=== PATIENT | male | born 1955 | race Caucasian/White ===

== ENCOUNTER 2017-09-25 17:39 | Observation (INO) | payer BC ==
[~2017-09-25] VITALS: Ht 162.6 cm; Wt 115.0 kg
[~2017-09-25 17:39] MED LIST: TYLE325T PO
[2017-09-25 17:52] VITALS: BP 137/70; PULSE 64; RESP 16; TEMP 97.3; O2SAT 95
[2017-09-25] MEDS ORDERED: TETANUS/DIPHTHERIA TOXOID ADULT 0.5 ML VIAL IM ONE (18:30)
[2017-09-25 18:31] VITALS: BP 103/65; PULSE 65; RESP 18; O2SAT 96
[2017-09-25 19:08] LABS: AUTOMATED NEUTROPHIL # 10.3 TH/MM3 (1.8-7.7); BASOPHIL % 0.3 % (0.0-2.0); EOSINOPHIL # 0.2 TH/MM3 (0-0.4); EOSINOPHIL % 1.3 % (0.0-4.0); HEMATOCRIT 41.5 % (39.0-51.0); HEMOGLOBIN 14.3 GM/DL (13.0-17.0); LYMPH % 15.2 % (9.0-44.0); MEAN CELL VOLUME 90.9 FL (80.0-100.0); MEAN CORPUSCULAR HEMOGLOBIN 31.4 PG (27.0-34.0); MEAN CORPUSCULAR HGB CONC 34.5 % (32.0-36.0); MEAN PLATELET VOLUME 6.8 FL (7.0-11.0); MONO % 6.4 % (0.0-8.0); MONOCYTE # 0.9 TH/MM3 (0-0.9); NEUT % 76.8 % (16.0-70.0); PLATELET COUNT 244 TH/MM3 (150-450); RED BLOOD COUNT 4.56 MIL/MM3 (4.50-5.90); RED CELL DISTRIBUTION WIDTH 12.7 % (11.6-17.2); WHITE BLOOD COUNT 13.5 TH/MM3 (4.0-11.0)
--- NOTE | 2017-09-25 19:12 | RADRPT ---
EXAM DATE: 09/25/2017 6:55 PM EDT AGE/SEX: 62 years / Male INDICATIONS: Fell today. Chest pain. CLINICAL DATA: This is the patient's initial encounter. Patient reports that signs and symptoms have been present for 1 day and indicates a pain score of 1/10. MEDICAL/SURGICAL HISTORY: None. None. COMPARISON: No prior exams available for comparison. FINDINGS: A single AP view of the chest demonstrates the lungs to be symmetrically aerated without evidence of mass, infiltrate or effusion. The cardiomediastinal contours are unremarkable. Osseous structures a re intact. CONCLUSION: No acute findings. Electronically signed by: Adryan Mcgregor MD 09/25/2017 7:11 PM EDT
[2017-09-25 19:30] LABS: BICARBONATE 27.3 MEQ/L (21.0-32.0); BLOOD UREA NITROGEN 17 MG/DL (7-18); CALCIUM 8.2 MG/DL (8.5-10.1); CHLORIDE 106 MEQ/L (98-107); CREATININE 1.04 MG/DL (0.60-1.30); GLOMERULAR FILTRATION RATE 73 ML/MIN (>89); GLUCOSE,RANDOM 121 MG/DL (74-106); MAGNESIUM 2.3 MG/DL (1.5-2.5); SODIUM (NA) 141 MEQ/L (136-145)
[2017-09-25 19:41] LABS: TROPONIN I LESS THAN 0.02 NG/ML (0.02-0.05)
--- NOTE | 2017-09-25 19:46 | RADRPT ---
EXAM DATE: 09/25/2017 7:33 PM EDT AGE/SEX: 62 years / Male INDICATIONS: Trauma; fall. CLINICAL DATA: This is the patient's initial encounter. Patient reports that signs and symptoms have been present for 1 day and indicates a pain score of 3/10. MEDICAL/SURGICAL HISTORY: None. Gastric bypass. RADIATION DOSE: 41.36 CTDI (mGy) COMPARISON: No prior exams available for comparison. TECHNIQUE: CT of the head without contrast. Using automated exposure control and adjustment of the mA and/or kV according to patient size, radiation dose was kept as low as reasonably achievable to ob tain optimal diagnostic quality images. FINDINGS: Cerebrum: The ventricles are normal for age. No evidence of midline shift, mass lesion, hemorrhage or acute infarction. No extraaxial fluid collections are seen. Posterior Fossa: The cerebellum and brainstem are intact. The 4th ventricle is midline. The cerebe llopontine angle is unremarkable. Extracranial: The visualized portion of the orbits is intact. Skull: The calvaria is intact. No evidence of skull fracture. CONCLUSION: 1. No acute intracranial abnormality. Electronically signed by: Adryan Mcgregor MD 09/25/2017 7:44 PM EDT
--- NOTE | 2017-09-25 19:47 | RADRPT ---
EXAM DATE: 09/25/2017 7:41 PM EDT AGE/SEX: 62 years / Male INDICATIONS: Trauma; fall. CLINICAL DATA: This is the patient's initial encounter. Patient reports that signs and symptoms have been present for 1 day and indicates a pain score of 4/10. MEDICAL/SURGICAL HISTORY: None. Gastric bypass. RADIATION DOSE: 64.21 CTDI (mGy) COMPARISON: No prior exams available for comparison. TECHNIQUE: Contiguous images in the axial and coronal planes were obtained using helical multirow de tector technique. Using automated exposure control and adjustment of the mA and/or kV according to p atient size, radiation dose was kept as low as reasonably achievable to obtain optimal diagnostic daja lity images. FINDINGS: Mildly displaced bilateral nasal bone fractures. No other facial bone fracture identified. Paranasal sinuses are clear. CONCLUSION: 1. Bilateral nasal bone fractures. Electronically signed by: Adryan Mcgregor MD 09/25/2017 7:46 PM EDT
[2017-09-25 19:48] VITALS: BP 141/86; PULSE 66; RESP 14; O2SAT 96
--- NOTE | 2017-09-25 19:49 | RADRPT ---
EXAM DATE: 09/25/2017 7:38 PM EDT AGE/SEX: 62 years / Male INDICATIONS: Trauma; fall. CLINICAL DATA: This is the patient's initial encounter. Patient reports that signs and symptoms have been present for 1 day and indicates a pain score of 4/10. MEDICAL/SURGICAL HISTORY: None. Gastric bypass. RADIATION DOSE: 24.11 CTDI (mGy) COMPARISON: No prior exams available for comparison. TECHNIQUE: Contiguous axial images were obtained using helical multirow detector technique. The vol umetric data was post-processed with multiplanar reconstruction in oblique axial, sagittal, and coron al planes. Using automated exposure control and adjustment of the mA and/or kV according to patient s ize, radiation dose was kept as low as reasonably achievable to obtain optimal diagnostic quality gene ges. FINDINGS: No acute fracture or spondylolisthesis. No prevertebral soft tissue swelling. No significant bony can al or bony foraminal stenosis. CONCLUSION: 1. No acute findings on cervical spine CT. Electronically signed by: Adryan Mcgregor MD 09/25/2017 7:48 PM EDT
[2017-09-25 19:50] VITALS: BP_SYST 136; BP_SYST 138; BP_SYST 140; BP_DIAS 84; BP_DIAS 86; BP_DIAS 89; RESP 16; RESP 18; RESP 20
--- NOTE | 2017-09-25 20:21 | HHI.HP ---
[facility] Service [facility] Primary Care Physician BENTON Denney Admission Diagnosis Diagnoses: (1) Fall Diagnosis: Principal (2) Nasal bone fracture Diagnosis: Principal (3) Dehydration Diagnosis: Principal Travel History International Travel<30 Days: No Contact w/Intl Traveler <30 Da: No Traveled to Known Affected Are: No History of Present Illness This is a 62-year-old male with a PMH of Gastric Bypass who was brought to the ER after fall w/ apparent syncopal event. Pt has no recollection of events and unable to provide much history. states pt was in bed taking a nap when she heard a "thud", at first she thought it was their dogs making noise, however 15-20min later she heard yelling for her. Unclear if pt had syncopal, no previous h/o syncope. Denies chest pain or SOB. Does report persistent non-productive cough which "make me see stars sometimes", but no fever or chills. On arrival, BP 137/70, HR 64, O2 sat 95% on RA, Afebrile. WBC 13.5. GFR 73. Troponin negative. CT Head with no acute findings. CT C- spine negative. CT Maxillofacial w/ bilateral nasal bone fractures. Review of Systems Except as stated in HPI: all other systems reviewed are Neg ROS: 14 point review of systems otherwise negative. Past Family Social History Past Medical History PMH: Gastric Bypass Past Surgical History PAST SURGICAL HISTORY: Gastric Bypass, Bilateral Rotator Cuff Repair Allergies: Coded Allergies: No Known Allergies (Verified Allergy, Unknown, 09/25/17) Family History PAST FAMILY HISTORY: Reviewed. No h/o DM or CAD Social History PAST SOCIAL HISTORY: Negative for alcohol, tobacco or drugs. Physical Exam Vital Signs Vital Signs Date Time Temp Pulse Resp B/P (MAP) Pulse Ox O2 Delivery O2 Flow Rate FiO2 09/25/17 19:50 70 16 136/84 (101) 74 18 140/86 (104) 73 20 138/89 (105) 09/25/17 19:48 66 14 141/86 (104) 96 Room Air 09/25/17 18:31 65 18 103/65 (78) 96 Room Air 09/25/17 18:26 65 20 Room Air 09/25/17 17:52 97.3 64 16 137/70 (92) 95 Physical Exam PE: GENERAL: Very pleasant middle-aged white male in no acute distress. at bedside. HEENT: PERRLA, EOMI. No scleral icterus or conjunctival pallor. No lid lag or facial droop. +ecchymosis nasal bridge, some swelling. CARDIOVASCULAR: Regular rate and rhythm. No obvious murmurs to auscultation. No chest tenderness to palpation. RESPIRATORY: No obvious rhonchi or wheezing. Clear to auscultation. Breath sounds equal bilaterally. GASTROINTESTINAL: Abdomen soft, non-tender, nondistended. BS normal. MUSCULOSKELETAL: Extremities without clubbing, cyanosis, or edema. No obvious deformities. NEUROLOGICAL: Awake, alert and oriented x4. No focal neurologic deficits. Moving both upper and lower extremities spontaneously. Laboratory Laboratory Tests Test 09/25/17 18:50 White Blood Count 13.5 Red Blood Count 4.56 Hemoglobin 14.3 Hematocrit 41.5 Mean Corpuscular Volume 90.9 Mean Corpuscular Hemoglobin 31.4 Mean Corpuscular Hemoglobin Concent 34.5 Red Cell Distribution Width 12.7 Platelet Count 244 Mean Platelet Volume 6.8 Neutrophils (%) (Auto) 76.8 Lymphocytes (%) (Auto) 15.2 Monocytes (%) (Auto) 6.4 Eosinophils (%) (Auto) 1.3 Basophils (%) (Auto) 0.3 Neutrophils # (Auto) 10.3 Lymphocytes # (Auto) 2.0 Monocytes # (Auto) 0.9 Eosinophils # (Auto) 0.2 Basophils # (Auto) 0.0 CBC Comment DIFF FINAL Differential Comment Blood Urea Nitrogen 17 Creatinine 1.04 Random Glucose 121 Calcium Level 8.2 Magnesium Level 2.3 Sodium Level 141 Potassium Level 3.9 Chloride Level 106 Carbon Dioxide Level 27.3 Anion Gap 8 Estimat Glomerular Filtration Rate 73 Total Creatine Kinase 105 Creatine Kinase MB 1.0 Troponin I LESS THAN 0.02 Thyroid Stimulating Hormone 3rd Gen 1.330 Result Diagram: 09/25/17184909/25/17 185 Caprini VTE Risk Assessment Caprini VTE Risk Assessment: No/Low Risk (score <= 1) Caprini Risk Assessment Model Point Value = 1 Point Value = 2 Point Value = 3 Point Value = 5 Age 41-60 Minor surgery BMI > 25 kg/m2 Swollen legs Varicose veins or History of unexplained or recurrent spontaneous Oral contraceptives or hormone replacement Sepsis (< 1 month) Serious lung disease, including pneumonia (< 1 month) Abnormal pulmonary function Acute myocardial infarction Congestive heart failure (< 1 month) History of inflammatory bowel disease Medical patient at bed rest Age 61-74 Arthroscopic surgery Major open surgery (> 45 min) Laparoscopic surgery (> 45 min) Malignancy Confined to bed (> 72 hours) Immobilizing plaster cast Central venous access Age >= 75 History of VTE Family history of VTE Factor V Leiden Prothrombin [id number] Lupus anticoagulant Anticardiolipin antibodies Elevated serum homocysteine Heparin-induced thrombocytopenia Other congenital or acquired thrombophilia Stroke (< 1 month) Elective arthroplasty Hip, pelvis, or leg fracture Acute spinal cord injury (< 1 month) Prophylaxis Regimen Total Risk Factor Score Risk Level Prophylaxis Regimen 0-1 Low Early ambulation 2 Moderate Order ONE of the following: *Sequential Compression Device (SCD) *Heparin 5000 units SQ BID 3-4 Higher Order ONE of the following medications: *Heparin 5000 units SQ TID *Enoxaparin/Lovenox 40 mg SQ daily (WT < 150 kg, CrCl > 30 mL/min) *Enoxaparin/Lovenox 30 mg SQ daily (WT < 150 kg, CrCl > 10-29 mL/min) *Enoxaparin/Lovenox 30 mg SQ BID (WT < 150 kg, CrCl > 30 mL/min) AND/OR *Sequential Compression Device (SCD) 5 or more Highest Order ONE of the following medications: *Heparin 5000 units SQ TID (Preferred with Epidurals) *Enoxaparin/Lovenox 40 mg SQ daily (WT < 150 kg, CrCl > 30 mL/min) *Enoxaparin/Lovenox 30 mg SQ daily (WT < 150 kg, CrCl > 10-29 mL/min) *Enoxaparin/Lovenox 30 mg SQ BID (WT < 150 kg, CrCl > 30 mL/min) AND *Sequential Compression Device (SCD) Assessment and Plan Problem List: (1) Fall ICD Code: W19.XXXA - Unspecified fall, initial encounter (2) Dehydration ICD Code: E86.0 - Dehydration (3) Nasal bone fracture ICD Code: S02.2XXA - Fracture of nasal bones, initial encounter for closed fracture Assessment and Plan A/P: 1. Fall: suspected syncopal event w/ fall out of bed, pt w/ no recollection of events. CT Head w/ no acute findings, CT C-spine negative, images reviewed by me. Admit for Observation in light of likely syncopal event. Telemetry. Initial trop negative, will check serial enzymes to eval for possible ischemia. Check echo to eval for valvular abnormalities/outlet obstruction. IVF for hydration. 2. Nasal Bone Fx: Bilateral. Non-op, outpatient follow up as needed. Analgesics/antiemetics 3. Dehydration: GFR 73, IVF for hydration, check U/a to eval for underlying UTI. Repeat labs in am. 4. DVT Prophylaxis: SCD/Teds 5. Social work for d/c planning as needed 6. Case discussed w/ ER physician at length, labs/records/imaging reviewed by me. Loraine Morales MD Sep 25, 2017 20:20
[2017-09-25] MEDS ORDERED: SODIUM CHLORIDE 0.9% FLUSH 10 ML FLUSH IV FLUSH PRN (20:30)
[2017-09-25] MEDS ORDERED: LACTULOSE SYRUP 20 GM/30 ML CUP PO PRN (20:30)
[2017-09-25] MEDS ORDERED: METOCLOPRAMIDE HCL 10 MG/2 ML VIAL IV PUSH PRN (20:30)
[2017-09-25] MEDS ORDERED: SENNOSIDES 8.6 MG TAB PO PRN (20:30)
[2017-09-25] MEDS ORDERED: MAGNESIUM HYDROXIDE SUSP 30 ML CUP PO PRN (20:30)
[2017-09-25] MEDS ORDERED: BISACODYL 10 MG SUPP RECTAL PRN (20:30)
[2017-09-25] MEDS ORDERED: MORPHINE SULFATE 2 MG/ML SYRINGE IV PUSH PRN (20:30)
[2017-09-25] MEDS ORDERED: ACETAMINOPHEN 325 MG TAB PO PRN (20:30)
[2017-09-25] MEDS: DOCUSATE SODIUM 50 MG/SENNA 8.6 MG TAB PO SCH (21:00)
[2017-09-25] MEDS: SODIUM CHLORIDE 0.9% FLUSH 10 ML FLUSH IV FLUSH SCH (21:00)
[2017-09-25] MEDS: SODIUM CHLOR 0.9% 1000 ML INJ 1,000 ML IV SCH (21:16)
--- NOTE | 2017-09-25 21:19 | PD ---
HPI Chief Complaint: Fall Time Seen by Provider: 18:21 Travel History International Travel<30 days: No Contact w/Intl Traveler<30days: No Traveled to known affect area: No History of Present Illness HPI 62-year-old male that presents to the ED for evaluation of possible fall versus syncope. Patient apparently was taking a nap today and he woke up on the floor. Per who is at bedside patient apparently was taking a nap and all of a sudden she heard a big loud noise coming from the room where she was at. Apparently 20 minutes later patient called for his as he was on the floor and had an abrasion to his nose. He could not remember how he got it. Per patient he has been battling some cough and congestion for the past couple of days and is not getting better. Per patient his cough so bad that he almost passes out. He believes that this might have happened although he does not really remember what happened. He does not know how he got in the floor. Possibly he was on the floor for about 10 to 20 minutes per . No history of syncope. No history of cardiac disease. No history of CVA. No chest pain or shortness of breath. He states having congestion and cough. He has significant abrasions and bruising to the forehead and nose but otherwise no other discomfort. He does state having some mild neck pain as well as some pain to the nose. Has no allergies to medication. No other medical issues at this time. PFSH Past Medical History Diminished Hearing: No Tetanus Vaccination: Unknown Past Surgical History Abdominal Surgery: Yes (GASTRIC BYPASS) Social History Alcohol Use: No Tobacco Use: No Substance Use: No Allergies-Medications (Allergen,Severity, Reaction): Coded Allergies: No Known Allergies (Verified Allergy, Unknown, 09/25/17) Reported Meds & Prescriptions Reported Meds & Active Scripts Active Reported Tylenol (Acetaminophen) 325 Mg Tab 250 Mg PO BID Review of Systems Except as stated in HPI: all other systems reviewed are Neg Physical Exam Narrative GENERAL: SKIN: Warm and dry. HEAD: Atraumatic. Normocephalic. EYES: Pupils equal and round. No scleral icterus. No injection or drainage. ENT: No nasal bleeding or discharge. Mucous membranes pink and moist. Tongue is midline. No uvula deviation. Patient has abrasions as well as bruising noted on the mid forehead as well as the bridge of the nose. Tender to touch. NECK: Trachea midline. No JVD. CARDIOVASCULAR: Regular rate and rhythm. No murmurs, S3, S4. RESPIRATORY: No accessory muscle use. Clear to auscultation. Breath sounds equal bilaterally. GASTROINTESTINAL: Abdomen soft, non-tender, nondistended. Hepatic and splenic margins not palpable. MUSCULOSKELETAL: Extremities without clubbing, cyanosis, or edema. No obvious deformities. Full range of motion of the upper and lower extremities bilaterally. 2+ pulses bilaterally. NEUROLOGICAL: Awake and alert. No obvious cranial nerve deficits. Motor grossly within normal limits. Five out of 5 muscle strength in the arms and legs. Normal speech. PSYCHIATRIC: Appropriate mood and affect; insight and judgment normal. Data Data Last Documented VS Vital Signs Date Time Temp Pulse Resp B/P (MAP) Pulse Ox O2 Delivery O2 Flow Rate FiO2 09/25/17 19:50 70 16 136/84 (101) 74 18 140/86 (104) 73 20 138/89 (105) 09/25/17 19:48 96 Room Air 09/25/17 17:52 97.3 Orders Orders Complete Blood Count With Diff (09/25/17 18:28) Basic Metabolic Panel (Bmp) (09/25/17 18:28) Ckmb (Isoenzyme) Profile (09/25/17 18:28) Troponin I (09/25/17 18:28) Magnesium (Mg) (09/25/17 18:28) Thyroid Stimulating Hormone (09/25/17 18:28) Chest, Single Ap (09/25/17 18:28) Ct Brain W/O Iv Contrast(Rout) (09/25/17 18:28) Iv Access Insert/Monitor (09/25/17 18:28) Ecg Monitoring (09/25/17 18:28) Ct Facial Bones W/O Iv Cont (09/25/17 ) Orthostatic Vital Signs (09/25/17 18:28) Tetanus/Diphtheria Tox Adult (Tetanus/Di (09/25/17 18:30) Ct Cerv Spine W/O Contrast (09/25/17 ) CKMB (09/25/17 18:50) CKMB% (09/25/17 18:50) Electrocardiogram (09/25/17 ) Echo 2d Comp With Doppler (09/25/17 ) Place In Observation (09/25/17 ) Vital Signs (Adult) Q4H (09/25/17 20:19) Activity Oob With Assistance (09/25/17 20:19) Tray Delivery Aide / Telemetry .CONTINUOUS (09/25/17 20:19) Intake + Output JASKARAN.QSHIFT (09/25/17 20:19) Diet Heart Healthy (09/26/17 Breakfast) Sodium Chlor 0.9% 1000 Ml Inj (Ns 1000 M (09/25/17 20:19) Sodium Chloride 0.9% Flush (Ns Flush) (09/25/17 20:30) Sodium Chloride 0.9% Flush (Ns Flush) (09/25/17 21:00) Metoclopramide Inj (Reglan Inj) (09/25/17 20:30) Comprehensive Metabolic Panel (09/26/17 06:00) Complete Blood Count With Diff (09/26/17 06:00) Troponin I (09/26/17 00:00) Troponin I (09/26/17 06:00) Pt Request For Service (09/25/17 20:19) Case Management Consult (09/25/17 20:19) Scd Bilateral/Knee High JASKARAN.BID (09/25/17 20:19) Sina Bilateral/Knee High JASKARAN.QSHIFT (09/25/17 20:20) Acetaminophen (Tylenol) (09/25/17 20:30) Acetamin-Hydrocod 325-5 Mg (Haugan 5-325 (09/25/17 20:30) Morphine Inj (Morphine Inj) (09/25/17 20:30) Docusate Sodium-Senna (Irais-Colace) (09/25/17 21:00) Magnesium Hydroxide Liq (Milk Of Magnesi (09/25/17 20:30) Sennosides (Senokot) (09/25/17 20:30) Bisacodyl Supp (Dulcolax Supp) (09/25/17 20:30) Lactulose Liq (Lactulose Liq) (09/25/17 20:30) Admit Order (Ed Use Only) (09/25/17 20:22) Labs Laboratory Tests Test 09/25/17 18:50 White Blood Count 13.5 TH/MM3 Red Blood Count 4.56 MIL/MM3 Hemoglobin 14.3 GM/DL Hematocrit 41.5 % Mean Corpuscular Volume 90.9 FL Mean Corpuscular Hemoglobin 31.4 PG Mean Corpuscular Hemoglobin Concent 34.5 % Red Cell Distribution Width 12.7 % Platelet Count 244 TH/MM3 Mean Platelet Volume 6.8 FL Neutrophils (%) (Auto) 76.8 % Lymphocytes (%) (Auto) 15.2 % Monocytes (%) (Auto) 6.4 % Eosinophils (%) (Auto) 1.3 % Basophils (%) (Auto) 0.3 % Neutrophils # (Auto) 10.3 TH/MM3 Lymphocytes # (Auto) 2.0 TH/MM3 Monocytes # (Auto) 0.9 TH/MM3 Eosinophils # (Auto) 0.2 TH/MM3 Basophils # (Auto) 0.0 TH/MM3 CBC Comment DIFF FINAL Differential Comment Blood Urea Nitrogen 17 MG/DL Creatinine 1.04 MG/DL Random Glucose 121 MG/DL Calcium Level 8.2 MG/DL Magnesium Level 2.3 MG/DL Sodium Level 141 MEQ/L Potassium Level 3.9 MEQ/L Chloride Level 106 MEQ/L Carbon Dioxide Level 27.3 MEQ/L Anion Gap 8 MEQ/L Estimat Glomerular Filtration Rate 73 ML/MIN Total Creatine Kinase 105 U/L Creatine Kinase MB 1.0 NG/ML Troponin I LESS THAN 0.02 NG/ML Thyroid Stimulating Hormone 3rd Gen 1.330 uIU/ML MDM Medical Decision Making Medical Screen Exam Complete: Yes Emergency Medical Condition: Yes Medical Record Reviewed: Yes Interpretation(s) CBC & BMP Diagram 09/25/17 18:50 Calcium Level 8.2 L, Magnesium Level 2.[address] 09/25/171827 Signed Impressions: CONCLUSION: 1. No acute intracranial abnormality. Chest X-Ray 09/25/171827 Signed Impressions: CONCLUSION: No acute findings. Maxillofacial CT 09/25/17 0000 Signed Impressions: CONCLUSION: 1. Bilateral nasal bone fractures. Cervical Spine CT 09/25/17 0000 Signed Impressions: CONCLUSION: 1. No acute findings on cervical spine CT. Troponin and CK-MB negative. EKG shows sinus rhythm with no sign of acute ischemia or arrhythmia read by me and attending. Differential Diagnosis Syncope versus head injury versus nasal fracture versus dehydration versus cough versus congestion versus ICH Narrative Course 62-year-old male that presents to the ED for evaluation of possible syncope and fall. Patient was properly examined and was found to have signs and symptoms consistent appears to be syncope and fall. Unclear etiology of the symptoms. Patient and did not really know what happened. Patient does not really have any medical history. At this time recommend labs and imaging. Labs and imaging were ordered and show only nasal fractures. At this time unclear of the etiology of the reason why patient was on the floor. Because patient is 62 years old and he has never had anything like this before I do recommend admission for opts for further evaluation of possible syncope. Case discussed with my attending Dr. Trujillo agrees that patient should be admitted. Case discussed with Dr. Morales who agrees to admission. Diagnosis Primary Impression: Syncope Qualified Codes: R55 - Syncope and collapse Additional Impressions: Nasal bone fracture Qualified Codes: S02.2XXA - Fracture of nasal bones, initial encounter for closed fracture Fall Qualified Codes: W19.XXXA - Unspecified fall, initial encounter Admitting Information Admitting Physician Requests: Lincoln Rubalcava Sep 25, 2017 21:19
[2017-09-25 21:38] VITALS: BP 118/70; PULSE 70; RESP 16; TEMP 97.9; O2SAT 95
[2017-09-25] MEDS: ACETAMINOPHEN/HYDROcodone 325 MG/5 MG TAB PO PRN (23:21)
[2017-09-25 23:24] VITALS: BP 126/73; PULSE 86; RESP 18; TEMP 98.2; O2SAT 95
[2017-09-25 23:32] LABS: BILIRUBIN, URINE NEG (NEG); BLOOD, URINE NEG (NEG); GLUCOSE,URINE >=500 mg/dL (NEG); KETONE, URINE TRACE mg/dL (NEG); MUCUS URINE MOD /lpf (OCC); NITRITE,URINE NEG (NEG); URINE COLOR YELLOW (YELLW/STRAW); URINE LEUKOCYTE ESTERASE NEG (NEG)
[2017-09-26 03:50] VITALS: BP 123/72; PULSE 68; RESP 18; TEMP 98.1; O2SAT 95
[2017-09-26] MEDS: SODIUM CHLOR 0.9% 1000 ML INJ 1,000 ML IV SCH ×2 (06:19→16:19)
[2017-09-26 07:10] LABS: AUTOMATED NEUTROPHIL # 8.2 TH/MM3 (1.8-7.7); BASOPHIL % 0.2 % (0.0-2.0); EOSINOPHIL # 0.1 TH/MM3 (0-0.4); HEMATOCRIT 39.8 % (39.0-51.0); HEMOGLOBIN 13.6 GM/DL (13.0-17.0); LYMPH % 20.1 % (9.0-44.0); LYMPHOCYTE # 2.3 TH/MM3 (1.0-4.8); MEAN CELL VOLUME 92.3 FL (80.0-100.0); MEAN CORPUSCULAR HEMOGLOBIN 31.5 PG (27.0-34.0); MEAN CORPUSCULAR HGB CONC 34.1 % (32.0-36.0); MEAN PLATELET VOLUME 7.1 FL (7.0-11.0); MONO % 6.2 % (0.0-8.0); MONOCYTE # 0.7 TH/MM3 (0-0.9); NEUT % 72.5 % (16.0-70.0); PLATELET COUNT 219 TH/MM3 (150-450); RED BLOOD COUNT 4.31 MIL/MM3 (4.50-5.90); RED CELL DISTRIBUTION WIDTH 12.8 % (11.6-17.2); WHITE BLOOD COUNT 11.3 TH/MM3 (4.0-11.0)
[2017-09-26 07:34] LABS: ALBUMIN 3.2 GM/DL (3.4-5.0); ALT (GPT) 29 U/L (12-78); AST (GOT) 15 U/L (15-37); BICARBONATE 23.2 MEQ/L (21.0-32.0); BLOOD UREA NITROGEN 15 MG/DL (7-18); CALCIUM 7.9 MG/DL (8.5-10.1); CHLORIDE 107 MEQ/L (98-107); CREATININE 0.84 MG/DL (0.60-1.30); GLOMERULAR FILTRATION RATE 93 ML/MIN (>89); GLUCOSE,RANDOM 112 MG/DL (74-106); SODIUM (NA) 141 MEQ/L (136-145)
[2017-09-26 07:38] LABS: ALKALINE PHOSPHATASE 87 U/L (45-117); TOTAL BILIRUBIN ADULT 0.3 MG/DL (0.2-1.0); TOTAL PROTEIN 6.7 GM/DL (6.4-8.2); TROPONIN I LESS THAN 0.02 NG/ML (0.02-0.05)
[2017-09-26 08:00] VITALS: BP 147/89; PULSE 69; RESP 20; TEMP 97.7; O2SAT 96
[2017-09-26 08:01] VITALS: PULSE 67
[2017-09-26] MEDS: ACETAMINOPHEN/HYDROcodone 325 MG/5 MG TAB PO PRN ×2 (08:17→15:10)
[2017-09-26] MEDS: DOCUSATE SODIUM 50 MG/SENNA 8.6 MG TAB PO SCH (08:18)
[2017-09-26] MEDS: SODIUM CHLORIDE 0.9% FLUSH 10 ML FLUSH IV FLUSH SCH (08:18)
--- NOTE | 2017-09-26 08:26 | HHI.PR ---
Subjective Remarks Follow-up for syncope. Patient explains that he has been sick with nasal congestion and nonproductive cough over the past week. He states everybody in his family is sick with the same upper respiratory symptoms. Patient states he has been getting into "coughing fits" where he starts to see stars and get lightheaded. He states he believes this happened prior to passing out yesterday. He denies any prior episodes of syncope. He has been ambulating to the bathroom today without difficulty. Denies any lightheadedness, dizziness, headache, visual changes, weakness, chest pain, palpitations, shortness of breath, or abdominal complaints. He does report his neck feeling sore consistent with a whiplash feeling. He wants to go home today. He denies any other medical complaints at this time. Objective Vitals Vital Signs Date Time Temp Pulse Resp B/P (MAP) Pulse Ox O2 Delivery O2 Flow Rate FiO2 09/26/17 03:50 98.1 68 18 123/72 (89) 95 09/25/17 23:24 98.2 86 18 126/73 (90) 95 09/25/17 21:39 09/25/17 21:38 97.9 70 16 118/70 (86) 95 09/25/17 19:50 70 16 136/84 (101) 74 18 140/86 (104) 73 20 138/89 (105) 09/25/17 19:48 66 14 141/86 (104) 96 Room Air 09/25/17 18:31 65 18 103/65 (78) 96 Room Air 09/25/17 18:26 65 20 Room Air 09/25/17 17:52 97.3 64 16 137/70 (92) 95 Result Diagram: 09/26/17 0530 09/26/17 0530 Imaging Last Impressions Head CT 09/25/171827 Signed Impressions: CONCLUSION: 1. No acute intracranial abnormality. Chest X-Ray 09/25/171827 Signed Impressions: CONCLUSION: No acute findings. Maxillofacial CT 09/25/17 0000 Signed Impressions: CONCLUSION: 1. Bilateral nasal bone fractures. Cervical Spine CT 09/25/17 0000 Signed Impressions: CONCLUSION: 1. No acute findings on cervical spine CT. Objective Remarks GENERAL: Well-nourished, well-developed middle-aged male patient in NAD. SKIN: Warm and dry. No rash. HEENT: Normocephalic. Nasal bridge edematous with ecchymosis. Pupils equal and round. Mucous membranes pink and moist. NECK: Supple. Trachea midline. Nontender to palpation. CARDIOVASCULAR: Regular rate and rhythm. No murmur appreciated. RESPIRATORY: No accessory muscle use. Clear to auscultation. Breath sounds equal bilaterally. GASTROINTESTINAL: Abdomen soft, non-tender, nondistended. Normoactive bowel sounds x4. MUSCULOSKELETAL: No obvious deformities. Extremities without clubbing, cyanosis , or edema. NEUROLOGICAL: Awake and alert. No obvious cranial nerve deficits. Motor grossly within normal limits. Moving all extremities spontaneously. Normal speech. PSYCHIATRIC: Appropriate mood and affect; insight and judgment normal. Medications and IVs Current Medications Medications (Trade) Dose Ordered Sig/Deshaun Route Start Time Stop Time Status Last Admin Sodium Chloride 1,000 ml @ 100 mls/hr Q10H IV 09/25/17 20:19 09/25/17 21:16 (NS Flush) 2 ml UNSCH PRN IV FLUSH 09/25/17 20:30 (NS Flush) 2 ml BID IV FLUSH 09/25/17 21:00 (Reglan Inj) 5 mg Q6H PRN IV PUSH 09/25/17 20:30 (Tylenol) 650 mg Q6H PRN PO 09/25/17 20:30 ([place] 5-325 Mg) 1 tab Q4H PRN PO 09/25/17 20:30 09/26/17 08:17 (Morphine Inj) 2 mg Q3H PRN IV PUSH 09/25/17 20:30 (Irais-Colace) 1 tab BID PO 09/25/17 21:00 (Milk Of Magnesia Liq) 30 ml Q12H PRN PO 09/25/17 20:30 (Senokot) 17.2 mg Q12H PRN PO 09/25/17 20:30 (Dulcolax Supp) 10 mg DAILY PRN RECTAL 09/25/17 20:30 (Lactulose Liq) 30 ml DAILY PRN PO 09/25/17 20:30 A/P Problem List: (1) Fall ICD Code: W19.XXXA - Unspecified fall, initial encounter (2) Dehydration ICD Code: E86.0 - Dehydration (3) Nasal bone fracture ICD Code: S02.2XXA - Fracture of nasal bones, initial encounter for closed fracture Assessment and Plan 62-year-old male with a PMH of Gastric Bypass who was brought to the ER after fall w/ apparent syncopal event. Syncope with fall: Suspect vasovagal secondary to forceful coughing spells and subsequent syncope, in combination with dehydration from current URI. -CT Head and CT C-spine reviewed and unremarkable -Monitor on telemetry, no arrhythmias noted so far -ACS ruled out with negative serial cardiac enzymes 3 and EKG without acute ischemic changes, no complaints of chest pain -Check echo to eval for valvular abnormalities/outlet obstruction. -Given IVF for hydration. -Consult PT Upper respiratory infection: acute. Reports nasal congestion and intractable nonproductive cough. -CXR reviewed and unremarkable -Check influenza -Start tessalon perrles, mucinex and ocean nasal spray prn Nasal Bone Fx: Bilateral. Secondary to fall. Seen on Maxillofacial CT. -Non-op, outpatient follow up as needed. -Analgesics/antiemetics Dehydration: GFR 73. Suspect secondary to recent decreased oral intake with recent illness. -Give IVF for hydration, -UA negative for UTI -Avoid nephrotoxins -Repeat labs show improvement with GFR 93 DVT Prophylaxis: SCD/Teds Discharge Planning Will plan to discharge if echocardiogram unremarkable. Holter monitor to be applied prior to discharge. Discharge patient to home Condition on discharge: Stable Regular Diet as tolerated Ad Marisela activity Rx written: mucinex bid Follow-up with primary care physician within 1 week Problem Qualifiers (1) Fall: Qualified Codes: W19.XXXA - Unspecified fall, initial encounter (2) Nasal bone fracture: Qualified Codes: S02.2XXA - Fracture of nasal bones, initial encounter for closed fracture Ashley Leslie PA-C Sep 26, 2017 08:26
[2017-09-26] MEDS ORDERED: SODIUM CHLORIDE 0.65% NASAL SPRAY 45 ML BTL EACH NARE PRN (09:15)
[2017-09-26] MEDS ORDERED: guaiFENesin E.R. 600 MG TAB PO SCH (09:15)
[2017-09-26] MEDS ORDERED: guaiFENesin ER PO (11:23)
--- NOTE | 2017-09-26 11:24 | HHI.DCPOC ---
Discharge Care Plan Diagnosis: (1) Syncope (2) Fall (3) Nasal bone fracture (4) Dehydration (5) URI (upper respiratory infection) Goals to Promote Your Health * To prevent worsening of your condition and complications * To maintain your health at the optimal level Directions to Meet Your Goals Take your medications as prescribed Follow your dietary instruction Follow activity as directed Keep your appointments as scheduled Take your immunizations and boosters as scheduled If your symptoms worsen call your PCP, if no PCP go to Urgent Care Center or Emergency Room Smoking is Dangerous to Your Health. Avoid second hand smoke Call the 24-hour hour crisis hotline for domestic abuse at Ashley Leslie PA-C Sep 26, 2017 11:24
[2017-09-26 12:00] VITALS: BP 135/75; PULSE 75; RESP 19; TEMP 97.8; O2SAT 95
--- NOTE | 2017-09-26 13:53 | EKG ---
Date Performed: 09/25/2017 Time Performed: 20:15:07 PTAGE: 62 years EKG: Sinus rhythm MODERATE INTRAVENTRICULAR CONDUCTION DELAY BORDERLINE ECG NO PREVIOUS TRACING DOCTOR: Tommy Denny Interpretating Date/Time 09/26/2017 13:46:17
[2017-09-26 16:00] VITALS: BP 130/86; PULSE 71; RESP 20; TEMP 98; O2SAT 94
--- NOTE | 2017-09-26 16:18 | ECHRPT ---
Indication: CARDIOMYOPATHY CONCLUSIONS Normal left ventricular size. Wall thickness is normal. The left ventricular systolic function is low normal with an estimated ejection fraction in the rang e of 50- 55%. There is estimated mild pulmonary hypertension present (46 mmHg). There is mild tricuspid valve regurgitation. BP: / HR: Rhythm: MEASUREMENTS (Male / Female) Normal Values Technical Quality: 2D ECHO LV Diastolic Diameter PLAX 4.4 cm 4.2 - 5.9 / 3.9 - 5.3 cm LV Systolic Diameter PLAX 3.1 cm IVS Diastolic Thickness 0.8 cm 0.6 - 1.0 / 0.6 - 0.9 cm LVPW Diastolic Thickness 0.8 cm 0.6 - 1.0 / 0.6 - 0.9 cm LV Relative Wall Thickness 0.4 RV Internal Dim ED PLAX 1.7 cm DOPPLER Mitral E Point Velocity 85.0 cm/s Mitral A Point Velocity 81.7 cm/s Mitral E to A Ratio 1.0 TR Peak Velocity 301.0 cm/s TR Peak Gradient 36.2 mmHg Right Atrial Pressure 10.0 mmHg Pulmonary Artery Systolic Pressu 46.2 mmHg Right Ventricular Systolic Press 46.2 mmHg FINDINGS LEFT VENTRICLE Normal left ventricular size. Wall thickness is normal. The left ventricular systolic function is low normal with an estimated ejection fraction in the rang e of 50- 55%. RIGHT VENTRICLE Normal right ventricular size and systolic function. LEFT ATRIUM The left atrial size is normal. RIGHT ATRIUM The right atrial size is normal. ATRIAL SEPTUM Normal atrial septal thickness without atrial level shunting by limited color doppler interrogation. AORTA The aortic root and proximal ascending aorta are normal in size on limited imaging. MITRAL VALVE Structurally normal mitral valve. No mitral valve stenosis or regurgitation. AORTIC VALVE Trileaflet aortic valve. No aortic valve stenosis or regurgitation. TRICUSPID VALVE There is estimated mild pulmonary hypertension present (46 mmHg). There is mild tricuspid valve regurgitation. PULMONARY VALVE No pulmonary valve regurgitation or stenosis. VESSELS The inferior vena cava is normal in size. PERICARDIUM No pericardial effusion. Jhonatan Cotton MD, FACC (Electronically Signed) Final Date:26 September 2017 16:16
--- NOTE | 2017-09-29 14:18 | HM ---
Date Performed: 09/26/2017 Time Performed: 13:43:00 HOOKUP DATE: 09/26/17 01:43:00 PM Sun ANALYSIS START TIME: 09/26/2017 1:48:00 PM ANALYSIS END TIME: 09/27/2017 1:52:00 PM PATIENT AGE: 62 PATIENT HEIGHT PATIENT WEIGHT DRUG LIST PATIENT DIAGNOSIS: syncope TEST NARRATIVE: The patient's average heart rate was 71 BPM. No episodes of tachycardia wer e noted. No episodes of bradycardia were noted. No pauses exceeding 2.0 seconds were noted. 1 ventricular ectopics, which represented < 1% of the total beat count, were noted. The highest vent ricular ectopic frequency occurred from 02:00 AM to 03:00 AM Mon. During this time 1 VE(s) occurred. Ventricular ectopics were observed as 1 isolated beat(s) only. No couplets or runs were noted. 59 supraventricular ectopics, which represented < 1% of the total beat count, were noted. The highe st supraventricular ectopic frequency occurred from 02:00 AM to 03:00 AM Mon. During this time 7 SVE (s) occurred. No episodes of ST depression (defined as -1.0 mm or more) were noted in channel 1. Multiple episodes of ST depression (defined as -1.0 mm or more) were noted in channel 2. The maxim um depression of -2.2 mm occurred at 07:29:42 PM Sun. No episodes of ST depression (defined as -1.0 mm or more) were noted in channel 3. NO DIARY RETURNED TEST INTERPRETATION: Sinus rhythm Rare premature atrial compexes S igned by : Jhonatan Cotton
== END 2017-09-26 17:11 | disposition home or self-care (01) ==
LOC: NEPC 17:39 → NEDA 20:23 → NEPFCDU 21:26
PROVIDERS: ADMIT Hospitalist; ATTEND Hospitalist
DX: R55 Syncope and collapse (principal); S02.2XXA Fracture of nasal bones, initial encounter for closed fracture; E86.0 Dehydration; J06.9 Acute upper respiratory infection, unspecified; W19.XXXA Unspecified fall, initial encounter; R07.9 Chest pain, unspecified; Z98.84 Bariatric surgery status; Z23 Encounter for immunization; S00.83XA Contusion of other part of head, initial encounter; M54.2 Cervicalgia
CPT/HCPCS: 70450; 70486; 71045; 72125; 80048; 80053; 81001; 82550; 82552; 83735; 84443; 84484; 85025; 90471; 90714; 93005; 93225; 93226; 93306; 96360; 97161; 99285; G0378; G8987; G8988; J7030